=== PATIENT | male | born 1965 | race American Indian/Alaskan Native ===

== ENCOUNTER 2021-09-05 20:44 | Emergency (ER) | payer MEDICAID ==
[2021-09-05] MEDS ORDERED: DEXTROSE 50% IN WATER (25GM) 50 ML SYRINGE IV ONE ×2 (20:54→21:44)
[2021-09-05] MEDS ORDERED: SODIUM CHLORIDE 0.9% 1000 ML 1,000 ML IV ONE (21:10)
--- NOTE | 2021-09-05 21:19 | Emergency Department Report ---
ED Altered Mental Status HPI - General Stated Complaint: AMS Time Seen by Provider: 09/05/21 21:09 - History of Present Illness Initial Comments: 56-year-old male with a history of diabetes mellitus who was brought in family member with unresponsiveness while riding in the car with other family member. On presentation his blood sugar was 33 mg/dL. Patient was immediately given D50 with positive response. Patient become alert and responsive shortly. Patient also mentioned that he has had this happen to him in the past and did not want any work-up. He said he just got his Decon and still trying to get used to it. Patient mentioned that the people that he was with did not note that he has diabetes or has history of hypoglycemia. No other modifying or associated factors reported. ED Review of Systems ROS: Stated complaint: AMS Other details as noted in HPI Comment: All other systems reviewed and negative Endocrine: excessive sweating Neurological: confusion, other (Altered mental status change) ED Physical Exam - General Limitations: Altered Mental Status General appearance: in no apparent distress, other (Unresponsive) - Head Head exam: Present: normal inspection - Eye Eye exam: Present: normal appearance Pupils: Present: normal accommodation - ENT ENT exam: Present: normal exam, normal orophraynx, mucous membranes moist - Neck Neck exam: Present: normal inspection. Absent: tenderness - Respiratory Respiratory exam: Present: normal lung sounds bilaterally, accessory muscle use. Absent: respiratory distress - Cardiovascular Cardiovascular Exam: Present: regular rate, normal rhythm, normal heart sounds - GI/Abdominal GI/Abdominal exam: Present: soft, normal bowel sounds. Absent: tenderness - Extremities Exam Extremities exam: Present: normal inspection - Back Exam Back exam: Absent: tenderness - Neurological Exam Neurological exam: Present: altered ED Course - Reevaluation(s) Reevaluation #1: 09/05/21 21:15 Present with unresponsiveness with blood sugar 33 mg/dl-- cause is likely as result of hypoglycemia but not limited to this so will go ahead and order routine labs including CBC, CMP and UA with EKG and troponin-- Pt however reports that he knows himself and that nothing else could cause this than his low blood sugar. He also mentioned that he has had this happened to him several time with no difference at this time. He decided to sign out Against Medical Advice. Pt reassured to return to he has a question or with worsen condition. - Lab Data Lab Results 09/05/21 Range/Units 20:52 POC Glucose 33 L (70-105) mg/dL Critical care attestation.: If time is entered above; I have spent that time in minutes in the direct care of this critically ill patient, excluding procedure time. ED Disposition Clinical Impression: Unresponsiveness, Hypoglycemia Disposition: LEFT AGAINST MEDICAL ADVICE Is pt being admited?: No Does the pt Need Aspirin: No Condition: Stable Instructions: Hypoglycemia, [id number] Additional Instructions: Please do not hesitate to call or return to emergency room if your symptoms worsen and you will be reevaluated even though you have signed out AGAINST MEDICAL ADVICE at this visit. Referrals: NANDINI VILLATORO MD [Referring] - 3-5 Days Forms: AMA Form Time of Disposition: 21:20
[2021-09-05 21:35] VITALS: BP 173/80
== END 2021-09-05 21:30 | disposition left against medical advice (07) ==
LOC: ED 20:44
DX: E11.649 Type 2 diabetes mellitus with hypoglycemia without coma (principal)
CPT/HCPCS: 82962; 96374; 99283; J3490